=== PATIENT | male | born 1965 | race Caucasian/White ===

== ENCOUNTER 2019-05-02 14:44 | Outpatient (CLI) | payer BC, SELFPAY ==
--- NOTE | 2019-05-02 15:43 | ECG_ITS ---
Measurements Intervals [place] Rate: 75 P: 50 [place]: 152 QRS: 17 QRSD: 102 T: 45 QT: 349 QTc: 390 Interpretive Statements SINUS RHYTHM NORMAL ECG Electronically Signed On 05-02-2019 17:51:14 TOP STOP ATTACHER by Jerry Butterfield D.O.
[2019-05-02 15:48] LABS: Appearance Synovial Fluid Hazy (Clear); Color Synovial Fluid Red (Colorless); Source Synovial Fluid Synovial fluid
[2019-05-02 15:49] LABS: Lymphocytes Synovial Fluid 34 %; Monocytes Synovial Fluid 6 %; Neutrophils Synovial Fluid 60 % (0-25); Nucleated Cell Synovial Fluid 1332 /uL (0-200); RBC Synovial Fluid 6767 /uL (0-0)
[2019-05-02 15:52] LABS: Crystals Synovial Fluid None Seen (None Seen)
== END 2019-05-02 14:45 | disposition home or self-care (01) ==
LOC: ANHSURGERY 14:47
PROVIDERS: PCP Physician Assistant; Visit Provider Orthopaedic Surgery
DX: M00.9 Pyogenic arthritis, unspecified (principal); M17.12 Unilateral primary osteoarthritis, left knee; I10 Essential (primary) hypertension
CPT/HCPCS: 87070; 87075; 87205; 88108; 89051; 89060; 93005

== ENCOUNTER 2019-05-05 16:18 | Observation (INO) | payer BC, SELFPAY ==
[2019-05-02 15:42] VITALS: BP 160/97; PULSE 88; RESP 18; TEMP 37.2; O2SAT 100; BMI 36.6
--- NOTE | 2019-05-02 19:25 | HP_ITS ---
DATE OF SERVICE: 05/04/2019 ADMITTING DIGANOSIS: Infection, left knee. HISTORY OF PRESENT ILLNESS: The patient is a 53-year-old male patient of Dr. Pelayo, who presents today for arthroscopy with debridement of his left knee. His symptoms started. He had a cortisone injection on February 07, 2019. He started having increasing pain 10 days after the injection. 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 He was getting cortisone injections every 3 months to help control his symptoms. He was working on getting his weight down and that way he could proceed with total knee arthroplasty. 10 days after the injection on the , however, he started having increased pain in the knee. 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 His pain progressively got worse. Dr. Snider saw him on April 18, 2019. At that time, he felt he is ready to proceed with total knee. Concern was the amount of pain at that point he was having in his knee. He had an aspiration done of the knee and this was sent off for Gram stain as well as cell count and cultures. His initial white cell count was 1500 with 93% polys, 21 days and then there was no crystals noted. 21 days after the fluid was sent off for cultures, it grew scant growth of Staph aureus in broth only and this was reported to us. The patient did have a sedimentation rate and CRP done. His CRP was 1.2, which was slightly elevated as normal as less than 1. His sedimentation rate, however, was 83. He was reaspirated in the office as this may have thought this could have been a contaminant due to the scant growth with broth only at 21 days. He was reaspirated on 04/29. At that time, his white cell count was up to 16,000 with 95% neutrophils. This aspiration grew Staph aureus after 3 days. Because of this, Dr. Snider recommend that he have arthroscopic debridement done of the knee. The patient has a history of pulmonary embolus. He was seen in the office on 05/02. At that time, he had already taken his morning dose of Eliquis, which he does twice a day as he needs to be off this before proceeding surgery. At that point, he was advised to stop taking his Eliquis so we can proceed with surgery and presents today for that today. PAST MEDICAL HISTORY: Significant for pulmonary embolus in the past. He also has a history of ORIF of the left knee from previous lateral plateau fracture with 3 cannulated screws. Has a history of hypertension. CURRENT MEDICATIONS: 1. 20 mg daily. 2. Eliquis 5 mg twice a day. 3. Gabapentin 800 mg daily. 4. Lisinopril 20 mg daily. 5. Lorazepam 0.5 mg p.r.n. 6. Tramadol p.r.n. 7. Trazodone 50 mg daily. FAMILY HISTORY: Seen for cancer and hypertension. SOCIAL HISTORY: He is a nonsmoker. REVIEW OF SYSTEMS: Positive for the pulmonary embolus as noted above. Left knee, he has no redness or warmth about it. He has moderate effusion with a moderate valgus deformity. Full range of motion is from 20 to 60 degrees. There is no swelling in the left lower extremity. Does have a good dorsalis pedis pulse in his foot. Skin is all normal. He does have surgical incision distal and lateral. In the knee, there is also 3-inch laceration scar from a childhood laceration noted as well. He has moderate quadriceps atrophy of the left thigh. He does report some tingling in the bottom of his foot to medial half and lateral half that he has noticed within the last week. He has intact motor function, ankle dorsiflexion, eversion, inversion, toe extension, all 5/5. Hip range of motion causes no discomfort. X-rays demonstrate severe posttraumatic lateral compartment arthritis. Anatomic axis of 14.5 degrees. There are 3 screws traversing the tibial metaphysis insert
[2019-05-04] VITALS (10 sets, daily range): BP systolic 97–153; BP diastolic 48–79; PULSE 72–90; RESP 14–18; TEMP 36.2–36.8; O2SAT 94–99; BMI 36.6
[2019-05-04] MEDS: LACTATED RINGERS 1,000 ML 30 ML IV CONT (13:25)
--- NOTE | 2019-05-04 14:13 | P.PNAN_ITS ---
Anes - Initial Pre Proc Eval Procedure: Operation Date: 05/04/19 15:30 Proposed Procedures p Arthroscopic Debridement of Septic Arthritis Left Knee - Michael Snider MD Date/Time: 05/04/19 14:13 Surgeon: Michael Snider MD Pre Op Diagnosis: Septic arthritis left knee Patient Data Age: 53 Gender: M Height: 1.77 m Weight: 114.3 kg Last Vital Signs Temp 37.2 C 05/02/19 15:42 Pulse 88 05/02/19 15:42 Resp 18 05/02/19 15:42 BP 160/97 H 05/02/19 15:42 Pulse Ox 100 05/02/19 15:42 Allergies Allergy/AdvReac Type Severity Reaction Status Date / Time No Known Allergies Allergy Unverified 05/04/19 13:35 Home Medications Medication Instructions Recorded Confirmed Type apixaban [Eliquis] 5 mg PO BID 05/02/19 05/04/19 History duloxetine 60 mg PO DAILY 05/02/19 05/04/19 History gabapentin 800 mg PO BID 05/02/19 05/04/19 History lisinopril 20 mg PO DAILY 05/02/19 05/04/19 History lorazepam 0.5 mg PO BID 05/02/19 05/04/19 History [id number] 6.8 mg PO DAILY 05/02/19 05/04/19 History [Airborne (ascorbate sodium)] sulfamethoxazole-trimethoprim 1 tablet PO Q12H 05/02/19 05/04/19 History [Bactrim DS] tramadol 50 mg PO TID PRN 05/02/19 05/04/19 History trazodone 100 mg PO HS 05/02/19 05/04/19 History ECG: Date of Service: 05/02/19 Procedure(s): CA 12 lead EKG Accession Number(s): [id number] cc: ~ Measurements Intervals [place] Rate: 75 P: 50 [place]: 152 QRS: 17 QRSD: 102 T: 45 QT: 349 QTc: 390 Interpretive Statements SINUS RHYTHM NORMAL ECG Electronically Signed On 05-02-2019 17:51:14 COMPENSATOR WORKER by Jerry Butterfield D.O. Dictated By: Jerry Butterfield DO 05/02/19 1603 Patient hx anesthesia problems: none Family hx anesthesia problems: none REPLACED BY [facility] Past Medical History Medical History (Updated 05/04/19 @ 14:17 by Jack Macias MD) Anxiety Depression HTN (hypertension) Obesity SHANTAL (obstructive sleep apnea) USES CPAP Pulmonary embolism 2014 BILAT PE Anes - Eval Final PreProcedure Day of Procedure 05/04/19 14:13 Patient weight: obese Heart: regular rate and rhythm Lungs: clear to auscultation and normal air movement Airway: Mallampati scale class II Neurological: alert and oriented Last oral intake: >/= 8 hours ASA classification: III Emergent: no Anesthetic plan: proceed Anesthesia type and monitoring: general LMA Informed Consent: The patient's anesthetic plan and its attendant risks and benefits were discussed with the patient/family/POA. Questions were solicited and answers provided to the satisfaction of the patient/family/POA.
--- NOTE | 2019-05-04 16:17 | WPDHPUPDATE1 ---
History and Physical Update Update Date/Time: 05/04/19 16:17 History and Physical has been reviewed, including an updated exam of the patient. There are NO changes in the patient's condition. Risks, benefits, and alternatives have been discussed and questions answered. Patient agrees to proceed with procedure. Pt also growing P Acnes from cx drawn 04/29/19.. I have discussed plan with Dr Zamora. Start Vanco after new cultures andancef and plan PICC line in am.
[2019-05-04] MEDS: ceFAZolin 2 GM/D5W 50 ML 2 GM/50 ML BAG IVPB (16:47)
[2019-05-04 17:27] LABS: Appearance Synovial Fluid Hazy (Clear); Color Synovial Fluid Yellow (Colorless); Source Synovial Fluid Synovial fluid
[2019-05-04 17:28] LABS: Crystals Synovial Fluid None Seen (None Seen); Lymphocytes Synovial Fluid 4 %; Monocytes Synovial Fluid 11 %; Neutrophils Synovial Fluid 85 % (0-25); Nucleated Cell Synovial Fluid 1638 /uL (0-200); RBC Synovial Fluid 892 /uL (0-0)
--- NOTE | 2019-05-04 18:01 | PM.PROC ---
Procedure Note - Detailed Date of procedure: 05/04/19 Pre-op diagnosis: Septic arthritis left knee Post-op diagnosis: same Procedure performed: Arthroscopic debridement left knee debridement degenerative lateral meniscus tear placement of drain Description of procedure: Patient brought to the operating room and general anesthesia was administered. The left leg was prepped draped usual fashion with DuraPrep. We aspirated the knee and removed about 20 cc of hazy yellow fluid. it did not look purulent. Previous 2 aspirations had some sanguinous tint and this 1 did not. We sent the fluid for aerobic and anaerobic culture cell count with differential crystals and Gram stain. Standard arthroscopic portals placed. The medial compartment was inspected 1st. There was some very mild superficial fibrillation of the medial femoral condyle medial tibial plateau. There is no purulent material fibrinous cllots. One 3 L bag was flush 2 medial compartment medial gutter. ACL was absent. Lateral compartment showed [id number] eburnation of the posterior 3 4 Petter[place]ak lateral tibial plateau and weight-bearing portion of lateral femoral condyle. There was complex tearing of the posterior horn of the lateral meniscus was some flap formations and these were debrided with a 3.5 full-radius the 4.2 gator shaver. The anterior horn was severely macerated and this is also debrided. A little bit of bleeding was present from the anterior horn periphery and this was cauterized. There was some bland appearing degenerative synovium present which was debrided. In the patellofemoral joint there was hyperemic synovitis. There was mild softening of the surface of the patella and the trochlea articular cartilage. Lateral gutter had some white bland appearing degenerative synovium that was debrided. Suprapatellar pouch was thoroughly irrigated no loose bodies or debris noted. hyperemic synovitis noted. a total of 9 L of normal saline were flushed through the knee in this fashion with the motorized shaver back to main the course of the both compartments as well as the suprapatellar pouch the medial lateral gutters. The knee joint had no significant bleeding. The portals were closed 4 nylon sutures drain was placed in a superomedial portal 5 cc of 0.5% Marcaine were injected into the portal sites for postoperative analgesia. The was placed in knee immobilizer and transferred postop recovery good condition minimal complications. [facility] Surgeon: Michael Snider MD Getterer: I Estimated blood loss (mL): 10 Drains: Yes Pathology: none sent Complications: No immediate complications Condition: stable Disposition: PACU
--- NOTE | 2019-05-04 18:37 | SUR.PHASEI ---
4338 SBAR FAXED FLOOR NOTIFIED
[2019-05-04] MEDS: HYDROMORPHONE HCL 1 MG/ML INJ 0.25 MG IV PUSH ×2 (18:40→18:48)
--- NOTE | 2019-05-04 19:15 | ADMGEN ---
This patient, Patricio Del Rosario, was admitted to 3 [facility] Surg Room 310-01. Patient/family oriented to hospital policies and general routines including ID bracelet, bed and alarms, visiting hours, pain management, procedures, bathroom and other care routines, personal items, smoking policy, room service/diet, and visiting hours. Valuables list has been completed. Information on how to activate the Rapid Response Team has been discussed. Patient/Family are encouraged to report perceived risks to care and to ask questions if they do not understand what they are told or what they should do.
--- NOTE | 2019-05-04 19:34 | PC.NURSE ---
Returned from OR per BED DRESSING TO SURGICAL LEFT KNEE INTACT HEMOVAC COMPRESSED WITH BLOODY DRAINAGE NOTED TO RESERVOIR NO FAMILY AT BEDSIDE, MOVES TOES,SENSATION NORMAL MOVES TOES COLOR NORMAL AND WARM TO TOUCH. DENIES THE NEED FOR PAIN PT RETURNED FROM OR AT 1915.IMMOBILIZER ON SURGICAL LEG.[ ]
[2019-05-04] MEDS: TRAZODONE HCL 50 MG TABLET 100 MG PO (20:36)
[2019-05-04 21:05] LABS: Estimated CRCL calculation 88 ml/min; Estimated Glomerular Filt Rate > 60
[2019-05-05] VITALS (9 sets, daily range): BP systolic 108–142; BP diastolic 55–71; PULSE 71–82; RESP 16–20; TEMP 36.4–36.8; O2SAT 93–98
[2019-05-05] MEDS: ceFAZolin 2 GM/D5W 50 ML 2 GM/50 ML BAG IVPB ×3 (00:40→18:12)
[2019-05-05 06:16] LABS: Basophils Percent Auto 0.3 % (0.2-1.2); Eosinophils Absolute Auto 0.1 K/mm3 (0-0.3); Eosinophils Percent Auto 0.7 % (0-4.4); Hematocrit 36.7 % (42.0-52.0); Hemoglobin 12.5 g/dL (14.0-18.0); Immature Granulocyte Absolute 0.01 K/mm3 (0.00-0.031); Immature Granulocyte Percent A 0.1 % (0-0.5); Lymphocytes Absolute Auto 0.92 K/mm3 (0.9-3.2); Lymphocytes Percent Auto 13.7 % (18.3-44.2); Mean Corpuscular HGB Conc 34.1 g/dl (32-36); Mean Corpuscular Hemoglobin 29.9 pg (26-34); Mean Corpuscular Volume 87.8 fl (80-100); Mean Platelet Volume 9.7 fl (7.4-10.4); Monocytes Absolute Auto 0.5 K/mm3 (0.1-0.6); Monocytes Percent Auto 8.1 % (2.6-8.5); Neutrophils Absolute Auto 5.2 K/mm3 (1.3-6.7); Neutrophils Percent Auto 77.1 % (45.5-73.1); Platelet Count Result 306 k/mm3 (150-375); Red Blood Count 4.18 M/mm3 (4.6-6.20); Red Cell Distribution Width 12.7 % (11.5-14.5); White Blood Count 6.7 K/mm3 (4.5-10.0)
[2019-05-05 06:32] LABS: CRP 0.7 mg/dL (<1.0)
[2019-05-05 07:55] LABS: Erythrocyte Sedimentation Rate 48 mm/hr (0-20)
[2019-05-05 08:04] LABS: Rheumatoid Factor < 8.6 IU/ML (<12)
--- NOTE | 2019-05-05 08:05 | PM.PNORT ---
Progress Note: A&P Additional Plan POD 1 avss drain is out , wds-dry, NVI pain is controlled, will stop immobilizer now PT to see pt and ambulate, Dr Zamora to see pt today and recom. abx treatment. have ordered labs to look for lupus and rheum. type autoimmune disorders as well. once abx treatment is set will have SS set up home therpy, pt will need PICC line today, plan to send home today Subjective Subjective Date/Time Seen: 05/05/19 08:05 Objective Data Vital Signs Vital Signs: Vital Signs - 24 hr 05/04/19 17:40 05/04/19 18:00 05/04/19 18:15 Temperature 36.2 C L Pulse Rate 85 82 87 Respiratory Rate 16 16 16 Blood Pressure 97/48 L 132/76 134/76 Pulse Oximetry 95 99 98 05/04/19 18:30 05/04/19 18:44 05/04/19 19:15 Temperature 36.8 C Pulse Rate 83 78 75 Respiratory Rate 16 14 16 Blood Pressure 125/75 133/79 130/72 Pulse Oximetry 97 95 95 05/04/19 19:30 05/04/19 20:00 05/04/19 21:00 Temperature 36.8 C 36.8 C 36.7 C Pulse Rate 72 90 85 Respiratory Rate 18 18 16 Blood Pressure 135/72 153/73 H 141/66 H Pulse Oximetry 97 96 94 05/04/19 22:49 05/05/19 01:00 05/05/19 02:56 Temperature 36.7 C Pulse Rate 78 Respiratory Rate 20 Blood Pressure 142/71 H Pulse Oximetry 95 96 96 05/05/19 05:24 Temperature 36.4 C Pulse Rate 71 Respiratory Rate 18 Blood Pressure 108/55 L Pulse Oximetry 97 Intake/Output Intake/Output: Intake & Output 05/02/19 05/03/19 05/04/19 05/05/19 23:59 23:59 23:59 23:59 Intake Total 1650 1350 Output Total 1380 Balance 1650 -30 Meds/Results Medications: Active Medications Generic Name Dose Route Start Last Admin Trade Name Freq PRN Reason Stop Dose Admin Hydrocodone Bitart/Acetaminophen 1 tab 05/04/19 18:55 [place] 5-325 Mg PO Q3H PRN Pain Rated 4-6 Apixaban 2.5 mg 05/05/19 09:00 Eliquis PO 05/17/19 09:01 Q12HR [facility] Docusate Sodium 100 mg 05/05/19 09:00 Colace Capsule PO BID [facility] Duloxetine HCl 60 mg 05/05/19 09:00 Cymbalta PO DAILY [facility] Fentanyl Citrate 25 mcg 05/04/19 07:41 05/04/19 18:27 Sublimaze IV PUSH 25 mcg Q2M PRN Administration Pain Gabapentin 800 mg 05/05/19 09:00 Neurontin PO BID [facility] Hydromorphone HCl 0.25 mg 05/04/19 07:41 05/04/19 18:48 Dilaudid Inj IV PUSH 0.25 mg Q5M PRN Administration Pain Lactated Ringer's 1,000 mls @ 30 mls/hr 05/04/19 07:45 05/04/19 18:43 Lr - Lactated Ringers Iv IV CONT Infused .Q24H ASHLEE Infusion Lactated Ringer's 1,000 mls @ 30 mls/hr 05/04/19 07:45 05/04/19 23:05 Lr - Lactated Ringers Iv IV CONT Not Given .Q24H ASHLEE Cefazolin Sodium 2 gm in 50 mls @ 100 mls/hr 05/05/19 01:00 05/05/19 01:10 Ancef 2 Gm/D5w 50 Ml IVPB 05/05/19 17:29 Infused Q8H ASHLEE Infusion Vancomycin HCl 1,750 mg in 500 mls @ 250 mls/hr 05/05/19 05:00 05/05/19 06:42 Vancomycin 1,750 Mg/D5w 500 Ml IVPB Infused Q12H [facility] Infusion Lisinopril 20 mg 05/05/19 09:00 Prinivil PO DAILY [facility] Lorazepam 0.5 mg 05/05/19 09:00 Ativan Tab PO BID [facility] Magnesium Hydroxide 30 ml 05/04/19 18:55 Milk Of Magnesia PO BID PRN Constipation Ondansetron HCl 4 mg 05/04/19 07:41 Zofran Inj IV PUSH ONCE PRN Nausea Oxycodone HCl 5 mg 05/04/19 07:41 Roxicodone Ir Tablet PO ONCE PRN Pain Oxycodone/Acetaminophen 2 tablet 05/04/19 21:00 05/05/19 04:42 Percocet 5-325 Mg PO 2 tablet Q4HR ASHLEE Administration Trazodone HCl 100 mg 05/04/19 21:00 05/04/19 20:36 Desyrel PO 100 mg HS ASHLEE Administration Labs Labs: Laboratory Results - last 24 hr 05/04/19 05/04/19 05/04/19 16:32 16:32 20:43 WBC RBC Hgb Hct MCV MCH MCHC RDW Plt Count MPV Immature Gran % (Auto) Neut % (Auto) Lymph % (Auto) [place] % (Auto) Eos % (Auto) Baso % (Auto) Lymph # (Auto) [place] # (Auto) Eos # (Au
[2019-05-05] MEDS: LORAZEPAM 0.5 MG TABLET PO ×2 (09:58→16:33)
[2019-05-05] MEDS: DOCUSATE SODIUM 100 MG CAPSULE PO ×2 (09:58→18:14)
[2019-05-05] MEDS: lisinopriL 20 MG TABLET PO (09:59)
[2019-05-05] MEDS: DULOXETINE 60 MG CAPSULE.DR PO (09:59)
[2019-05-05] MEDS: GABAPENTIN 400 MG CAPSULE 800 MG PO ×2 (09:59→18:13)
[2019-05-05] MEDS: APIXABAN 2.5 MG TABLET PO ×2 (10:14→20:15)
--- NOTE | 2019-05-05 10:15 | WPDANESPN ---
Anes - Prog Note Post-Op Date/Time: 05/05/19 10:15 Vital Signs: Last Vital Signs Temp 97.6 F 05/05/19 05:24 Pulse 71 05/05/19 05:24 Resp 18 05/05/19 05:24 BP 108/55 L 05/05/19 05:24 Pulse Ox 95 05/05/19 09:41 I/O: Intake & Output 05/04/19 05/05/19 05/05/19 23:59 07:59 15:59 Intake Total 1650 1350 125 Output Total 1380 Balance 1650 -30 125 Laboratory Tests 05/05/19 05:46 05/04/19 20:43 05/04/19 05/04/19 05/04/19 16:32 16:32 20:43 WBC RBC Hgb Hct MCV MCH MCHC RDW Plt Count MPV Immature Gran % (Auto) Neut % (Auto) Lymph % (Auto) [place] % (Auto) Eos % (Auto) Baso % (Auto) Lymph # (Auto) [place] # (Auto) Eos # (Auto) Baso # (Auto) Abs Immat Gran (auto) Absolute Neuts (auto) Absolute Nucleated RBC Nucleated RBC % ESR Creatinine 1.10 Estim Creat Clear Calc 88 Estimated GFR > 60 C-Reactive Protein Synovial Source Synovial fluid Synovial Color Yellow Synovial Appearance Hazy A Synovial RBC 892 H Synovial Nuc Cells 1638 H Synovial Neutrophils 85 H Synovial Lymphocytes 4 Synovial Monocytes 11 Synovial Crystals None seen Rheumatoid Factor Anti-Cycl Citrul Peptide JAQUAN Screen 05/05/19 05/05/19 05/05/19 05:44 05:46 05:46 WBC RBC Hgb Hct MCV MCH MCHC RDW Plt Count MPV Immature Gran % (Auto) Neut % (Auto) Lymph % (Auto) [place] % (Auto) Eos % (Auto) Baso % (Auto) Lymph # (Auto) [place] # (Auto) Eos # (Auto) Baso # (Auto) Abs Immat Gran (auto) Absolute Neuts (auto) Absolute Nucleated RBC Nucleated RBC % ESR 48 H Creatinine Estim Creat Clear Calc Estimated GFR C-Reactive Protein 0.7 Synovial Source Synovial Color Synovial Appearance Synovial RBC Synovial Nuc Cells Synovial Neutrophils Synovial Lymphocytes Synovial Monocytes Synovial Crystals Rheumatoid Factor < 8.6 Anti-Cycl Citrul Peptide JAQUAN Screen 05/05/19 05/05/19 05:46 08:32 WBC 6.7 RBC 4.18 L Hgb 12.5 L Hct 36.7 L MCV 87.8 MCH 29.9 MCHC 34.1 RDW 12.7 Plt Count 306 MPV 9.7 Immature Gran % (Auto) 0.1 Neut % (Auto) 77.1 H Lymph % (Auto) 13.7 L [place] % (Auto) 8.1 Eos % (Auto) 0.7 Baso % (Auto) 0.3 Lymph # (Auto) 0.92 [place] # (Auto) 0.5 Eos # (Auto) 0.1 Baso # (Auto) 0.0 Abs Immat Gran (auto) 0.01 Absolute Neuts (auto) 5.2 Absolute Nucleated RBC 0.0 Nucleated RBC % 0.0 ESR Creatinine Estim Creat Clear Calc Estimated GFR C-Reactive Protein Synovial Source Synovial Color Synovial Appearance Synovial RBC Synovial Nuc Cells Synovial Neutrophils Synovial Lymphocytes Synovial Monocytes Synovial Crystals Rheumatoid Factor Anti-Cycl Citrul Peptide Pending JAQUAN Screen Pending Patient Feedback: Patient satisfied with anesthetic care.
--- NOTE | 2019-05-05 10:36 | PM.IMCN ---
Assessment and Plan Assessment and plan (1) Septic arthritis of knee, left: Qualifiers: Septic arthritis organism: due to unspecified organism Qualified Code(s): M00.9 - Pyogenic arthritis, unspecified Code(s): M00.9 - Pyogenic arthritis, unspecified Status: Acute Assessment and Plan: POD#1 s/p L knee washout/debridement by Dr Snider 05/04/19. He has consulted Dr. Zamora for further antibiotic recommendations but at the present time he is on vancomycin and cefazolin. Aspirate culture from 04/29 grew Proprionibacterium and Staph. New wound culture from OR yesterday is pending. Appreciate further input from Dr. Zamora. Edit: Dr Zamora's note reviewed. Noted his recommendation to continue IV Vanc. Left basilic PICC placed this afternoon. (2) HTN (hypertension): Qualifiers: Hypertension type: essential hypertension Qualified Code(s): I10 - Essential (primary) hypertension Code(s): I10 - Essential (primary) hypertension Status: Acute Assessment and Plan: Blood pressures reviewed. Continue home lisinopril. Monitor blood pressure and adjust treatment if needed. (3) SHANTAL (obstructive sleep apnea): Code(s): G47.33 - Obstructive sleep apnea (adult) (pediatric) Status: Acute Assessment and Plan: His his CPAP from home. (4) Pulmonary embolism: Qualifiers: Pulmonary embolism type: multiple subsegmental (without acute cor pulmonale) Qualified Code(s): I26.94 - Multiple subsegmental pulmonary emboli without acute cor pulmonale Code(s): I26.99 - Other pulmonary embolism without acute cor pulmonale Status: Acute Assessment and Plan: History of bilateral pulmonary emboli in 2014 for which he is chronically anticoagulated on Eliquis. His Eliquis has been resumed by the primary service. (5) Depression: Qualifiers: Depression Type: unspecified Qualified Code(s): F32.9 - Major depressive disorder, single episode, unspecified Code(s): F32.9 - Major depressive disorder, single episode, unspecified Status: Acute Assessment and Plan: Stable on home medications. (6) DVT prophylaxis: Code(s): Z29.9 - Encounter for prophylactic measures, unspecified Status: Acute Assessment and Plan: Eliquis Additional Plan Thank you for allowing me to participate this pleasant gentleman's care. Will continue to follow with you while he is here. Recommend continuing his home medications at the current dosages. HPI Data of Consult Consult date: 05/05/19 Requesting Physician: Mihcael Snider MD Primary Care Provider: Kaylie Lofton, PA Consult Narrative Narrative: Date of Service 05/05/19. Hospitalist service is asked to see this patient in consultation for postoperative medical management by Dr. Snider. The supervising physician for this medical consultation is Dr. Zimmer. Mr. Del Rosario is a 53-year-old male with history of hypertension, obstructive sleep apnea compliant with CPAP, depression with anxiety, history of pulmonary embolism in 2014 on chronic anticoagulation with Eliquis who is seen this morning POD#1 s/p arthroscopic debridement of left knee by Dr. Snider. He is known have severe arthritis to the left knee and it is noted that he had been receiving cortisone injections by Dr. Snider's office about every 3 months, last being 02/07/19. It is noted that he began to have increasing pain about 10 days after that last injection and patient had been working on weight loss to consider total knee arthroplasty. His left knee was aspirated in Dr Snider's office 03/25/19 and again 04/29/19. Aspirate culture from 04/29 aspiration grew Proprionibacterium acnes and Staphylococcus. He then underwent arthroscopic debridement the left knee yesterday
--- NOTE | 2019-05-05 12:01 | WPDINFPN2 ---
Progress Note: A&P Assessment and Plan (1) Septic arthritis of knee, left: Qualifiers: Septic arthritis organism: due to unspecified organism Qualified Code(s): M00.9 - Pyogenic arthritis, unspecified Code(s): M00.9 - Pyogenic arthritis, unspecified Status: Acute Assessment and Plan: Septic arthritis L knee, skin michael REC Vanc # 2 / 14-28 days. Ok PICC or alternative as recommended by [facility]. Knee replacement unfortunately will have to be deferred 6-12 months Subjective Date/time seen: 05/05/19 12:01 Objective Data Vital Signs Vital Signs: Vital Signs - 24 hr 05/04/19 17:40 05/04/19 18:00 05/04/19 18:15 Temperature 36.2 C L Pulse Rate 85 82 87 Respiratory Rate 16 16 16 Blood Pressure 97/48 L 132/76 134/76 Pulse Oximetry 95 99 98 05/04/19 18:30 05/04/19 18:44 05/04/19 19:15 Temperature 36.8 C Pulse Rate 83 78 75 Respiratory Rate 16 14 16 Blood Pressure 125/75 133/79 130/72 Pulse Oximetry 97 95 95 05/04/19 19:30 05/04/19 20:00 05/04/19 21:00 Temperature 36.8 C 36.8 C 36.7 C Pulse Rate 72 90 85 Respiratory Rate 18 18 16 Blood Pressure 135/72 153/73 H 141/66 H Pulse Oximetry 97 96 94 05/04/19 22:49 05/05/19 01:00 05/05/19 02:56 Temperature 36.7 C Pulse Rate 78 Respiratory Rate 20 Blood Pressure 142/71 H Pulse Oximetry 95 96 96 05/05/19 05:24 05/05/19 09:41 Temperature 36.4 C Pulse Rate 71 Respiratory Rate 18 Blood Pressure 108/55 L Pulse Oximetry 97 95 Intake/Output Intake/Output: Intake & Output 05/02/19 05/03/19 05/04/19 05/05/19 23:59 23:59 23:59 23:59 Intake Total 1650 1475 Output Total 1380 Balance 1650 95 Meds/Results Medications: Active Medications Generic Name Dose Route Start Last Admin Trade Name Freq PRN Reason Stop Dose Admin Hydrocodone Bitart/Acetaminophen 1 tab 05/04/19 18:55 [place] 5-325 Mg PO Q3H PRN Pain Rated 4-6 Apixaban 2.5 mg 05/05/19 09:00 05/05/19 10:14 Eliquis PO 05/17/19 09:01 2.5 mg Q12HR ASHLEE Administration Docusate Sodium 100 mg 05/05/19 09:00 05/05/19 09:58 Colace Capsule PO 100 mg BID ASHLEE Administration Duloxetine HCl 60 mg 05/05/19 09:00 05/05/19 09:59 Cymbalta PO 60 mg DAILY ASHLEE Administration Fentanyl Citrate 25 mcg 05/04/19 07:41 05/04/19 18:27 Sublimaze IV PUSH 25 mcg Q2M PRN Administration Pain Gabapentin 800 mg 05/05/19 09:00 05/05/19 09:59 Neurontin PO 800 mg BID ASHLEE Administration Hydromorphone HCl 0.25 mg 05/04/19 07:41 05/04/19 18:48 Dilaudid Inj IV PUSH 0.25 mg Q5M PRN Administration Pain Lactated Ringer's 1,000 mls @ 30 mls/hr 05/04/19 07:45 05/04/19 18:43 Lr - Lactated Ringers Iv IV CONT Infused .Q24H ASHLEE Infusion Lactated Ringer's 1,000 mls @ 30 mls/hr 05/04/19 07:45 05/04/19 23:05 Lr - Lactated Ringers Iv IV CONT Not Given .Q24H ASHLEE Cefazolin Sodium 2 gm in 50 mls @ 100 mls/hr 05/05/19 01:00 05/05/19 10:05 Ancef 2 Gm/D5w 50 Ml IVPB 05/05/19 17:29 100 mls/hr Q8H ASHLEE Administration Vancomycin HCl 1,750 mg in 500 mls @ 250 mls/hr 05/05/19 05:00 05/05/19 06:42 Vancomycin 1,750 Mg/D5w 500 Ml IVPB Infused Q12H ASHLEE Infusion Lisinopril 20 mg 05/05/19 09:00 05/05/19 09:59 Prinivil PO 20 mg DAILY ASHLEE Administration Lorazepam 0.5 mg 05/05/19 09:00 05/05/19 09:58 Ativan Tab PO 0.5 mg BID ASHLEE Administration Magnesium Hydroxide 30 ml 05/04/19 18:55 Milk Of Magnesia PO BID PRN Constipation Ondansetron HCl 4 mg 05/04/19 07:41 Zofran Inj IV PUSH ONCE PRN Nausea Oxycodone HCl 5 mg 05/04/19 07:41 Roxicodone Ir Tablet PO ONCE PRN Pain Oxycodone/Acetaminophen 2 tablet 05/04/19 21:00 05/05/19 09:58 Percocet 5-325 Mg PO 2 tablet Q4HR ASHLEE Administration Trazodone HCl 100 mg 05/04/19 21:00 05/04/19 20:36 Desyrel PO 100 mg HS ASHLEE Administration
[2019-05-05] MEDS: LIDOCAINE HCL 1% PF INJ 5 ML VIAL INFILTRATE (14:00)
--- NOTE | 2019-05-05 17:48 | CONS_ITS ---
DATE OF CONSULTATION: 05/05/2019 REASON FOR CONSULTATION: Infectious arthritis, left knee. HISTORY OF PRESENT ILLNESS: The patient is a 53-year-old male with degenerative arthritis. He has had some 6 to 8 corticosteroid injections over the past 2 years in the office. He knows of no past infections as a result or previously. He had previously suffered a fracture of the left tibia area and screws remain in place. He had an injection into the left knee in mid February and about a week later developed pain in the medial and anterior aspect of the inferior knee. Pain was worse with weightbearing or with movement. He was seen in the office on April 02 approximately where aspiration revealed 1507 white cells, 93% PMNs. Culture revealed a single colony of coagulase-negative Staph with no organism seen on Gram stain. Pain persisted and he had repeat aspiration done 5 days before admission. Propionate bacterium and coagulase-negative Staph were isolated, Gram stain again no organisms, but this time many white blood cells. Concurrent cell count was 16,877 white cells, 95% PMNs. Aspiration was also performed 2 days before admission on the , which is red, hazy, 6767 red cells, 1332 white cells, now 60% PMNs. Culture at this time after 3 days is no growth so far. His pain then was persistent. He was admitted yesterday, taken to the operating room yesterday where he underwent arthroscopic debridement of the left knee with lateral meniscus tear debridement and placement of a drain. Hyperemic synovitis was seen. No purulent material. The patient denies any fever, chills, sweats, other prior operations. He does have pain in the opposite knee as well over senior living. ALLERGIES: NONE KNOWN. HABITS: No tobacco. Social drinker. PRESENT MEDICATIONS: Vancomycin day #2. No immunosuppressants. PAST MEDICAL HISTORY: Pulmonary embolism apparently without a known source on chronic anticoagulation, also hypertension in the past, SHANTAL, prior depression. FAMILY HISTORY: Not pertinent to his present illness. 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 He is . is at the bedside, lives locally. REVIEW OF SYSTEMS: Intentional weight loss, some 40 pounds, 14-point review otherwise negative. PHYSICAL EXAMINATION: GENERAL: This is a middle-aged male, who appears actual age. No acute distress. VITAL SIGNS: Afebrile, 108/55, 71, 18, 97% room air. SKIN: Warm and dry. No ulcers. No rashes. NODES: No cervical adenopathy. EENT: The pupils equal, round. Conjunctivae are normal. Oral mucosa is also normal. Teeth in excellent repair. NECK: No meningismus, thyromegaly, abnormal contour. LUNGS: Clear to auscultation and percussion. CARDIAC: Regular rate and rhythm. Normal S1, S2. No murmurs or gallops. Dorsalis pedis, radial pulses all 2+ and equal. ABDOMEN: Nontender, soft. No organomegaly. No masses. EXTREMITIES: No clubbing, cyanosis, or edema. He has minimal venous stasis skin changes. MUSCULOSKELETAL: No drains in place. He has an anterior knee incision. He has no sinus tracts. No erythema over the proximal tibia area where his ORIF hardware sits. LABORATORY DATA: Preadmission labs as above. Currently, his fluid from the , no organisms seen, and rare white cells as opposed to previous results. The fluid was now 1638 white cells, 892 red cells, 85% PMNs, no crystals, nor crystals have been observed previously. His white blood cell count today 6.7, hemoglobin 12.5, platelets are 306, creatinine 1.1, hemoglobin A1c 5.8%. His CRP 6 days ago was 1.2, today 0.7. Radiology not done. ASSESSMENT: 1. Arthritis with effusion, left knee of approximately 2 months duration, suspected a true infection. The coagulase-negative Staph in the
[2019-05-05] MEDS: TRAZODONE HCL 50 MG TABLET 100 MG PO (20:15)
[2019-05-06 01:23] VITALS: O2SAT 96
[2019-05-06 05:19] LABS: Basophils Absolute Auto 0.1 K/mm3 (0.0-0.1); Basophils Percent Auto 0.9 % (0.2-1.2); Eosinophils Absolute Auto 0.2 K/mm3 (0-0.3); Eosinophils Percent Auto 3.4 % (0-4.4); Hematocrit 37.7 % (42.0-52.0); Hemoglobin 12.5 g/dL (14.0-18.0); Immature Granulocyte Absolute 0.01 K/mm3 (0.00-0.031); Immature Granulocyte Percent A 0.2 % (0-0.5); Lymphocytes Absolute Auto 1.68 K/mm3 (0.9-3.2); Lymphocytes Percent Auto 28.6 % (18.3-44.2); Mean Corpuscular HGB Conc 33.2 g/dl (32-36); Mean Corpuscular Hemoglobin 29.6 pg (26-34); Mean Corpuscular Volume 89.3 fl (80-100); Mean Platelet Volume 9.6 fl (7.4-10.4); Monocytes Absolute Auto 0.7 K/mm3 (0.1-0.6); Monocytes Percent Auto 11.2 % (2.6-8.5); Neutrophils Absolute Auto 3.3 K/mm3 (1.3-6.7); Neutrophils Percent Auto 55.7 % (45.5-73.1); Platelet Count Result 273 k/mm3 (150-375); Red Blood Count 4.22 M/mm3 (4.6-6.20); Red Cell Distribution Width 13.1 % (11.5-14.5); White Blood Count 5.9 K/mm3 (4.5-10.0)
[2019-05-06 05:34] LABS: Blood Urea Nitrogen 26 mg/dL (9-20); Calcium 9.3 mg/dL (8.4-10.2); Carbon Dioxide 27 mmol/L (22-30); Chloride 102 mmol/L (98-107); Estimated CRCL calculation 96 ml/min; Estimated Glomerular Filt Rate > 60; Glucose 98 mg/dL (75-110); Magnesium 1.7 mg/dL (1.6-2.3); Potassium 4.3 mmol/L (3.4-5.0); Sodium 137 mmol/L (137-145)
[2019-05-06 06:00] VITALS: BP 122/66; PULSE 66; RESP 16; TEMP 36.4; O2SAT 96
--- NOTE | 2019-05-06 06:19 | DS_ITS ---
DATE OF DISCHARGE: 05/05/2019 DISCHARGE DIAGNOSIS: Left knee infection HOSPITAL COURSE: The patient is a 53-year-old male, who underwent irrigation, debridement arthroscopically of his left knee by Dr. Snider on 05/04, for infection in the knee, underwent procedure without any complications. Postoperatively, he has been afebrile. Vital signs been stable. Neurovascularly intact. His drain has been removed. His 3 portal incisions are clean and dry without any drainage. The patient is going to be evaluated by Dr. Zamora today to establish IV therapy treatments and they will set this up for this to be done at home. We will get this all setup on 05/05, so that he can be discharged on 05/05. He had new labs that were drawn on 05/05, his white count was 6.7. His sedimentation rate was 48, which is down from 83. C-reactive protein was normal at 0.7. Fluid was sent off prior to surgery last night with showing only 1600 white cells. Previous aspiration done in the office showed 16,000 and the one prior to that only showed 1500 is a very odd scenario. There has been no crystals seen in the synovial fluid. The patient has been restarted on low-dose Eliquis 2.5 mg, he will do this the night of 05/05 and then during the day on 05/06, then resume his full dose on May 1, 5 mg twice a day. Again, once Dr. Zamora has made recommendations, we will proceed to hopefully get the patient discharged later today. The aspirations did grow coag-negative staph. Propionibacterium acnes was grown from that. The patient will follow up with Dr. Snider as scheduled to go home on [place] 5 for pain. He is weightbearing as tolerated on regular diet. He was advised if any questions or concerns. Call the office otherwise or see him at this point. Josh I MT: Jose
--- NOTE | 2019-05-06 06:51 | PM.PNORT ---
Progress Note: A&P Additional Plan Patient is now approximately the 36 hr after arthroscopic lavage debridement of degenerative meniscus tear left knee. Dr. Zamora's note was reviewed. I agree with his assessment and recommendations. I am going to ask the patient to see Dr. Zamora in 2 weeks to obtain his opinion on vancomycin treatment duration. His portal sites look fine his not have significant swelling in the knee there is minimal tenderness. No signs of hemarthrosis. We have him on Eliquis 2.5 mg twice daily as a prophylactic dose. He had to stay overnight as we are waiting for insurance authorization for home IV therapy and hopefully that will be accomplished today. The PICC line was put in yesterday afternoon. Is functioning. His BMP looks fine today. he is moving the knee comfortably and up and about in the room. he has the foot pumps in place. We will plan to have him resume his 5 mg Eliquis twice daily discharge and he will take that tonight which was discussed. I did order JAQUAN and rheumatoid factor and anti CCP and will add lupus anticoagulant today. With his very high sedimentation rate of 85 recently and is history of spontaneous severe pulmonary emboli, this raises the question of possible systemic inflammatory condition predisposing him to inflammatory arthritis an thromboembolic disease. I will see him in the office in 7 days to remove the stitches. Subjective Subjective Date/Time Seen: 05/06/19 06:51 Objective Data Vital Signs Vital Signs: Vital Signs - 24 hr 05/05/19 09:41 05/05/19 13:23 05/05/19 14:00 Temperature 36.4 C L 36.6 C Pulse Rate 73 82 Respiratory Rate 19 18 Blood Pressure 116/58 L 130/60 Pulse Oximetry 95 98 95 05/05/19 21:27 05/05/19 21:28 05/05/19 22:00 Temperature 36.8 C Pulse Rate 82 Respiratory Rate 16 Blood Pressure 111/60 Pulse Oximetry 95 95 93 05/06/19 01:23 05/06/19 06:00 Temperature 36.4 C Pulse Rate 66 Respiratory Rate 16 Blood Pressure 122/66 Pulse Oximetry 96 96 Intake/Output Intake/Output: Intake & Output 05/03/19 05/04/19 05/05/19 05/06/19 23:59 23:59 23:59 23:59 Intake Total 1650 3065 200 Output Total 2305 1000 Balance 1650 760 -800 Meds/Results Medications: Active Medications Generic Name Dose Route Start Last Admin Trade Name Freq PRN Reason Stop Dose Admin Hydrocodone Bitart/Acetaminophen 1 tab 05/04/19 18:55 [place] 5-325 Mg PO Q3H PRN Pain Rated 4-6 Apixaban 2.5 mg 05/05/19 09:00 05/05/19 20:15 Eliquis PO 05/17/19 09:01 2.5 mg Q12HR ASHLEE Administration Docusate Sodium 100 mg 05/05/19 09:00 05/05/19 18:14 Colace Capsule PO 100 mg BID ASHLEE Administration Duloxetine HCl 60 mg 05/05/19 09:00 05/05/19 09:59 Cymbalta PO 60 mg DAILY ASHLEE Administration Fentanyl Citrate 25 mcg 05/04/19 07:41 05/04/19 18:27 Sublimaze IV PUSH 25 mcg Q2M PRN Administration Pain Gabapentin 800 mg 05/05/19 09:00 05/05/19 18:13 Neurontin PO 800 mg BID ASHLEE Administration Hydromorphone HCl 0.25 mg 05/04/19 07:41 05/04/19 18:48 Dilaudid Inj IV PUSH 0.25 mg Q5M PRN Administration Pain Lactated Ringer's 1,000 mls @ 30 mls/hr 05/04/19 07:45 05/04/19 18:43 Lr - Lactated Ringers Iv IV CONT Infused .Q24H ASHLEE Infusion Lactated Ringer's 1,000 mls @ 30 mls/hr 05/04/19 07:45 05/04/19 23:05 Lr - Lactated Ringers Iv IV CONT Not Given .Q24H ASHLEE Vancomycin HCl 1,750 mg in 500 mls @ 250 mls/hr 05/05/19 05:00 05/06/19 05:04 Vancomycin 1,750 Mg/D5w 500 Ml IVPB 250 mls/hr Q12H ASHLEE Administration Lisinopril 20 mg 05/05/19 09:00 05/05/19 09:59 Prinivil PO 20 mg DAILY ASHLEE Administration Lorazepam 0.5 mg 05/05/19 09:00 05/05/19 16:33 Ativan Tab PO 0.5 mg BID ASHLEE Administration Magnesium Hydroxide 30 ml 05/04/19 18:55 Milk Of Magnesia PO BID PRN Constipation Ondansetron HCl 4 mg 05/04/19 07:41 Zo
[2019-05-06] MEDS: LORAZEPAM 0.5 MG TABLET PO (08:21)
[2019-05-06] MEDS: lisinopriL 20 MG TABLET PO (08:21)
[2019-05-06] MEDS: GABAPENTIN 400 MG CAPSULE 800 MG PO (08:21)
[2019-05-06] MEDS: APIXABAN 2.5 MG TABLET PO (08:21)
[2019-05-06] MEDS: DULOXETINE 60 MG CAPSULE.DR PO (08:21)
[2019-05-06] MEDS: DOCUSATE SODIUM 100 MG CAPSULE PO (08:21)
--- NOTE | 2019-05-06 10:50 | DS_ITS ---
DATE OF DISCHARGE: ADDENDUM: Original date of discharge is 05/05. His planned discharge to be 05/06. The patient was needed to stay an additional night. IV antibiotics were being set up through home health therapy and the PICC line was placed. However, they did not have personnel to go to his house to set up IV antibiotics last night and was therefore needed to stay 1 additional evening to allow all the antibiotics to be set up. The patient has been seen by Dr. Zamora, who has recommended 2 to 4 weeks of IV antibiotics. Postop day #2, the patient has been alert, pleasant. He has been afebrile. Vital signs have been stable. His wounds are dry. Pain is well controlled. He will be discharged home on 05/06. Again, he is weightbearing as tolerated with a normal diet. He will resume his normal dosing of Eliquis this evening. He will follow up with Dr. Snider and Dr. Zamora as scheduled. If he has any questions or concerns when he goes home, will call the office, otherwise we will see him then. Josh I MT: Jose
--- NOTE | 2019-05-06 11:01 | PM.IMPN ---
Progress Note: A&P Assessment and Plan (1) Septic arthritis of knee, left: Qualifiers: Septic arthritis organism: due to unspecified organism Qualified Code(s): M00.9 - Pyogenic arthritis, unspecified Code(s): M00.9 - Pyogenic arthritis, unspecified Status: Acute Assessment and Plan: POD#2 s/p L knee washout/debridement by Dr Snider 05/04/19. He has consulted Dr. Zamora for further antibiotic recommendations. Left basilic PICC placed yesterday. Discharged home with home health for IV vancomycin. Serial labs to be drawn by home health RN. Patient is medically stable for discharge from hospitalist standpoint. (2) HTN (hypertension): Qualifiers: Hypertension type: essential hypertension Qualified Code(s): I10 - Essential (primary) hypertension Code(s): I10 - Essential (primary) hypertension Status: Acute Assessment and Plan: Blood pressures reviewed. Continue home lisinopril. (3) SHANTAL (obstructive sleep apnea): Code(s): G47.33 - Obstructive sleep apnea (adult) (pediatric) Status: Acute Assessment and Plan: CPAP (4) Pulmonary embolism: Qualifiers: Pulmonary embolism type: multiple subsegmental (without acute cor pulmonale) Qualified Code(s): I26.94 - Multiple subsegmental pulmonary emboli without acute cor pulmonale Code(s): I26.99 - Other pulmonary embolism without acute cor pulmonale Status: Acute Assessment and Plan: History of bilateral pulmonary emboli in 2015 for which he is chronically anticoagulated on Eliquis. His Eliquis has been resumed by the primary service. (5) Depression: Qualifiers: Depression Type: unspecified Qualified Code(s): F32.9 - Major depressive disorder, single episode, unspecified Code(s): F32.9 - Major depressive disorder, single episode, unspecified Status: Acute Assessment and Plan: Stable on home medications. (6) DVT prophylaxis: Code(s): Z29.9 - Encounter for prophylactic measures, unspecified Status: Acute Assessment and Plan: Shira Additional Plan Thank you for allowing me to participate this pleasant gentleman's care. Stable for discharge from hospitalist standpoint. Recommend continuing his home medications at the current dosages. Subjective Date/time seen: 05/06/19 1030 Interval history: Mr. Del Rosario is a 53yo M seen in follow up this morning POD #2 s/p left knee arthroscopic washout and debridement by Dr. Snider 05/04/19. He reports feeling well today. Has some left knee discomfort that is tolerable at time of my exam, otherwise no complaints. No chest pain, shortness of breath, or calf tenderness. He is tolerating PO intake without nausea or vomiting. Exam Narrative: Exam Narrative: General: Well-developed, well-nourished male resting in bed in no acute distress. HEENT: Normocephalic, atraumatic, EOMI, oral mucosa moist. Neck: Supple. Chest: Lungs clear to auscultation all griff[place]. Respirations are even and nonlabored. Tolerating room air. Heart: Heart rate and rhythm regular. Abdomen: Soft, nontender, nondistended, bowel sounds present. Extremities: Left knee dressing has been removed and now minor incisions are covered with Band-Aids. Swelling noted to left knee, not particularly hot to touch or painful to palpation. Left lower extremity neurovascularly intact. Neurologic: No focal neurological deficits noted. Speech is clear. Objective Data Vital Signs Vital Signs: Last Vital Signs Temp 97.6 F 05/06/19 06:00 Pulse 66 05/06/19 06:00 Resp 16 05/06/19 06:00 BP 122/66 05/06/19 06:00 Pulse Ox 96 05/06/19 06:00 Intake/Output Intake/Output: Intake & Output 05/03/19 05/04/19 05/05/19 05/06/19 23:59 23:59 23:59 23:59 Intake
--- NOTE | 2019-05-06 13:30 | WPDPN ---
Progress Note: A&P Assessment and Plan (1) Septic arthritis of knee, left: Qualifiers: Septic arthritis organism: due to unspecified organism Qualified Code(s): M00.9 - Pyogenic arthritis, unspecified Code(s): M00.9 - Pyogenic arthritis, unspecified Status: Acute Assessment and Plan: Septic arthritis L knee, skin michael REC Vanc # 2 / 14-28 days. Ok PICC or alternative as recommended by [facility]. Knee replacement unfortunately will have to be deferred 6-12 months Patient not seen today. Orders provided for Vanc as above, ok discharge Objective Data Vital Signs Vital Signs: Vital Signs - 24 hr 05/05/19 14:00 05/05/19 21:27 05/05/19 21:28 Temperature 36.6 C Pulse Rate 82 Respiratory Rate 18 Blood Pressure 130/60 Pulse Oximetry 95 95 95 05/05/19 22:00 05/06/19 01:23 05/06/19 06:00 Temperature 36.8 C 36.4 C Pulse Rate 82 66 Respiratory Rate 16 16 Blood Pressure 111/60 122/66 Pulse Oximetry 93 96 96 Intake/Output Intake/Output: Intake & Output 05/03/19 05/04/19 05/05/19 05/06/19 23:59 23:59 23:59 23:59 Intake Total 1650 3065 1180 Output Total 2305 1000 Balance 1650 760 180 Meds/Results Medications: Active Medications Generic Name Dose Route Start Last Admin Trade Name Freq PRN Reason Stop Dose Admin Hydrocodone Bitart/Acetaminophen 1 tab 05/04/19 18:55 [place] 5-325 Mg PO Q3H PRN Pain Rated 4-6 Apixaban 2.5 mg 05/05/19 09:00 05/06/19 08:21 Eliquis PO 05/17/19 09:01 2.5 mg Q12HR ASHLEE Administration Docusate Sodium 100 mg 05/05/19 09:00 05/06/19 08:21 Colace Capsule PO 100 mg BID ASHLEE Administration Duloxetine HCl 60 mg 05/05/19 09:00 05/06/19 08:21 Cymbalta PO 60 mg DAILY ASHLEE Administration Fentanyl Citrate 25 mcg 05/04/19 07:41 05/04/19 18:27 Sublimaze IV PUSH 25 mcg Q2M PRN Administration Pain Gabapentin 800 mg 05/05/19 09:00 05/06/19 08:21 Neurontin PO 800 mg BID ASHLEE Administration Hydromorphone HCl 0.25 mg 05/04/19 07:41 05/04/19 18:48 Dilaudid Inj IV PUSH 0.25 mg Q5M PRN Administration Pain Lactated Ringer's 1,000 mls @ 30 mls/hr 05/04/19 07:45 05/04/19 18:43 Lr - Lactated Ringers Iv IV CONT Infused .Q24H ASHLEE Infusion Lactated Ringer's 1,000 mls @ 30 mls/hr 05/04/19 07:45 05/04/19 23:05 Lr - Lactated Ringers Iv IV CONT Not Given .Q24H ASHLEE Vancomycin HCl 1,750 mg in 500 mls @ 250 mls/hr 05/05/19 05:00 05/06/19 07:46 Vancomycin 1,750 Mg/D5w 500 Ml IVPB Infused Q12H ASHLEE Infusion Lisinopril 20 mg 05/05/19 09:00 05/06/19 08:21 Prinivil PO 20 mg DAILY ASHLEE Administration Lorazepam 0.5 mg 05/05/19 09:00 05/06/19 08:21 Ativan Tab PO 0.5 mg BID ASHLEE Administration Magnesium Hydroxide 30 ml 05/04/19 18:55 Milk Of Magnesia PO BID PRN Constipation Ondansetron HCl 4 mg 05/04/19 07:41 Zofran Inj IV PUSH ONCE PRN Nausea Oxycodone HCl 5 mg 05/04/19 07:41 Roxicodone Ir Tablet PO ONCE PRN Pain Oxycodone/Acetaminophen 2 tablet 05/04/19 21:00 05/06/19 12:13 Percocet 5-325 Mg PO 2 tablet Q4HR ASHLEE Administration Trazodone HCl 100 mg 05/04/19 21:00 05/05/19 20:15 Desyrel PO 100 mg HS ASHLEE Administration Labs Labs: Laboratory Results - last 24 hr 05/06/19 05/06/19 05:00 05:00 WBC 5.9 RBC 4.22 L Hgb 12.5 L Hct 37.7 L MCV 89.3 MCH 29.6 MCHC 33.2 RDW 13.1 Plt Count 273 MPV 9.6 Immature Gran % (Auto) 0.2 Neut % (Auto) 55.7 Lymph % (Auto) 28.6 Yell % (Auto) 11.2 H Eos % (Auto) 3.4 Baso % (Auto) 0.9 Lymph # (Auto) 1.68 Yell # (Auto) 0.7 H Eos # (Auto) 0.2 Baso # (Auto) 0.1 Abs Immat Gran (auto) 0.01 Absolute Neuts (auto) 3.3 Absolute Nucleated RBC 0.0 Nucleated RBC % 0.0 Sodium 137 Potassium 4.3 Chloride 102 Carbon Dioxide 27 BUN 26 H Creatinine 1.00 Estim Creat C
[2019-05-08 11:13] LABS: Anti Cyclic Citrullinated Pept <16 Units (<20)
[2019-05-10 19:42] LABS: Hex Phase Conf Chg Test Yes; Lupus dRVVT 1:1 Mix Interpreta Not Indicated; Lupus dRVVT Screen 37 sec (<=45); LupusdRVVT 1:1Mix Int Chg Test Yes; PTT-LA Screen 34 sec (<=40)
== END 2019-05-06 15:08 | disposition home health service (06) ==
LOC: ANHSURGERY 18:33 → ANH3MEDSUR 18:33
PROVIDERS: Physician Assistant; Physician Assistant Surgical; Admitting Provider Orthopaedic Surgery; PCP Physician Assistant; Visit Provider Orthopaedic Surgery
PROC: (CPT 29870; principal; 2019-05-04 15:30)
DX: M00.862 Arthritis due to other bacteria, left knee (principal); M65.862 Other synovitis and tenosynovitis, left lower leg; M23.352 Other meniscus derangements, posterior horn of lateral meniscus, left knee; I26.94 Multiple subsegmental thrombotic pulmonary emboli without acute cor pulmonale; I10 Essential (primary) hypertension; F32.9 Major depressive disorder, single episode, unspecified; G47.33 Obstructive sleep apnea (adult) (pediatric); E66.9 Obesity, unspecified; Z68.36 Body mass index [BMI] 36.0-36.9, adult; Z79.01 Long term (current) use of anticoagulants; Z79.899 Other long term (current) drug therapy; Z86.711 Personal history of pulmonary embolism; Z99.89 Dependence on other enabling machines and devices
CPT/HCPCS: 29881; 20610; 36415; 36569; 80048; 82565; 83735; 85025; 85598; 85613; 85652; 85730; 86038; 86140; 86200; 86430; 87070; 87075; 87205; 88108; 89051; 89060; 97110; 97116; 97161; A9270; C1751; G0378; J0131; J0690; J1100; J1170; J1885; J2250; J2405; J2704; J3010; J3370; J7120; L1830

== ENCOUNTER → 2019-10-19 10:07 | Outpatient (CLI) | payer BC, SELFPAY ==
--- NOTE | ~2019-10-19 | MR_ITS ---
EXAMINATION: MR foot RT wo con DATE: 10/19/2019 10:54 INDICATION: Plantar fascial fibromatosis TECHNIQUE: Magnetic resonance imaging (MRI) of the right ankle, mid and hindfoot was performed withou t intravenous contrast. Sequences included sagittal, coronal, and axial proton-density weighted fast spin echo without and with fat saturation. COMPARISON: 01/13/2017 FINDINGS: Medial ankle ligaments: Again seen is thickening of the deep and superficial deltoid ligament without significant surrounding edema. There is also a tiny heterotopic ossicles along the deep deltoid ligament with scar/of findin gs most consistent with scarring related to chronic sprain. Minimal thickening of the superomedial co mponent of the spring ligament complex without surrounding edema also consistent with mild scarring r elated to chronic sprain Lateral ankle ligaments: The anterior and posterior inferior tibiofibular ligaments are normal. Thickening of the anterior magi ofibular ligament with tiny heterotopic ossicles near its fibular attachment consistent with sequela of chronic sprain. Similar thickening and mild increased signal of the posterior talofibular ligament most consistent with scarring related to chronic sprain. The calcaneofibular ligament remains normal . Tendons: Mild tendinosis of the distal Achilles tendon with small enthesophyte at its calcaneal attachment. Th e peroneus longus and brevis tendons are normal. The tibialis anterior and extensor hallucis longus a nd extensor digitorum longus tendons are normal. Small amount of fluid surrounding the normal appeari ng tibialis casino manager tendon consistent with mild tenosynovitis. The flexor digitorum longus and flexor hallucis longus tendons are normal. Plantar fascia: Again seen is mild thickening of the proximal plantar aponeurosis with moderate-sized plantar calcane al spur at its calcaneal attachment consistent with chronic enthesopathy. There is a small region of minimal fusiform thickening of the central component of the plantar aponeurosis centered approximatel y 4 cm from the calcaneal origin. The thickness increases from approximately 2 mm to 3 mm. This is no t well appreciated on the prior sagittal images likely due to slight differences in the plane of imag ing over appears similar on coronal images. Bones/other: Bone alignment is normal. No fracture or pathologic marrow replacing process. Increase in mild subtal ar osteoarthritis with partial thickness cartilage loss and new subarticular edema at the posterior m argin of the posterior facet. Again seen is prominent fluid signal and loss of T1 fat signal at the s inus Tarsi consistent with sinus Tarsi syndrome. There is increasing edema and likely developing mild cystic change at the dorsal aspect of the anterior process of the calcaneus and juxtaposed nonarticu lar surface of the lateral process of the talus. No interval change in intraosseous ganglion cyst at the angle of Gissane. Fluid: Synovitis and several small ganglion cysts at the posterior recess of the tibiotalar and subtalar j carlos nts. Small talonavicular joint effusion with mild bulging of the dorsal joint capsule. Unchanged smal l ganglion cyst dorsal to the navicular cuneiform articulation. IMPRESSION: 1. Scarring consistent with chronic medial and lateral ankle sprains. 2. Persistent prominent synovitis/inflammatory change at the sinus Tarsi suggestive of sinus Tarsi sy ndrome with progression of reactive marrow edema and likely developing mild cystic change at the juxt aposed surfaces of the dorsal aspect of the anterior process of the calcaneus and anterior margin of the lateral process of the talus which can be seen in the setting of lateral hindfoot impingement. 3. Persistent synovitis and ganglion cysts at the posterolateral aspect of the ankle which could pred ispose towards posterolateral impingement. 4. Enthesopat
== END ==
PROVIDERS: PCP Physician Assistant; Visit Provider Podiatrist Foot & Ankle Surgery
DX: M77.51 Other enthesopathy of right foot and ankle (principal); M72.2 Plantar fascial fibromatosis; L90.5 Scar conditions and fibrosis of skin; M65.871 Other synovitis and tenosynovitis, right ankle and foot; M67.471 Ganglion, right ankle and foot; M76.61 Achilles tendinitis, right leg
CPT/HCPCS: 73718

== ENCOUNTER → 2020-09-05 09:14 | Outpatient (CLI) | payer BC, SELFPAY ==
--- NOTE | ~2020-09-05 | MR_ITS ---
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 TECHNIQUE: Magnetic resonance imaging (MRI) of the right mid and hindfoot and ankle was performed wit hout intravenous contrast. Sequences included sagittal, coronal, and axial proton-density weighted fa st spin echo without and with fat saturation. COMPARISON: None. FINDINGS: Medial ankle ligaments: Stable appearance of mild thickening of the deep and superficial deltoid ligaments as well as the sup eromedial component of the spring ligament complex without significant surrounding edema consistent w ith scarring related to chronic sprain. Couple tiny heterotopic ossicles along the deep deltoid ligam ent consistent with chronic trauma. Lateral ankle ligaments: The anterior and posterior inferior tibiofibular ligaments are normal. Additional thickening of the a nterior talofibular and posterior talofibular ligaments with small amount of heterotopic ossification along the anterior talofibular ligament consistent with scarring related to chronic sprain. The calc aneofibular ligament remains normal. Tendons: Mild tendinosis of the distal Achilles tendon with small enthesophyte at its calcaneal attachment. Th e peroneus longus and brevis tendons are normal with small amount of surrounding fluid in the tendon sheath consistent with mild tenosynovitis. The tibialis anterior and extensor hallucis long us and ex tensor digitorum longus tendons are normal. Small amount of fluid surrounding the normal appearing ti bialis dough maker tendon consistent with mild tenosynovitis. The flexor digitorum longus and flexor hallu cis longus tendons are normal. There is mild mesial edema surrounding the distal flexor umbilicus iva caity muscle belly which could be related to muscle strain in the appropriate clinical setting. Plantar fascia: Again seen is mild thickening of the proximal plantar aponeurosis with moderate-sized plantar calcane al spur at its calcaneal attachment consistent with chronic enthesopathy. Unchanged small region of m inimal fusiform thickening of the central component of the plantar aponeurosis centered approximately 4 cm from the calcaneal origin consistent with plantar fibromatosis. Bones/other: Although imaging is nonweightbearing there is suggestion of possible pes planus. Alignment is otherwi se normal. No fracture or pathologic marrow replacing process. Mild subtalar osteoarthritis with no s ignificant change in mild partial thickness cartilage loss. Additional mild osteoarthritis at the sec ond tarsal metatarsal joint and at the articulation between the medial and mid cuneiforms with increa se in mild subarticular edema and cystic change at the middle cuneiform. Again seen is prominent flui d signal and loss of T1 fat signal at the sinus Tarsi and marrow edema along the nonarticular osseous margins of the sinus Tarsi consistent with sinus Tarsi syndrome. Slight interval increase in more pr ominent marrow edema and mild cystic change at the lateral process of the talus which can be seen wit h lateral hindfoot impingement. No interval change in intraosseous ganglion cysts at the angle of Gis sane. There is a bridging osteophyte at the dorsal lateral aspect of the calcaneocuboid articulation which could represent sequela of chronic sprain of the calcaneocuboid component of the bifurcate liga ment. Fluid: Synovitis and several small ganglion cysts at the posterior recess of the tibiotalar and subtalar j carlos nts. Small talonavicular joint effusion with mild bulging of the dorsal joint capsule. Unchanged smal l ganglion cyst dorsal to the navicular cuneiform articulation. IMPRESSION: 1. Unchanged scarring consistent with chronic medial and lateral ankle sprains. 2. No significant interval change in prominent synovitis and inflammatory change at the sinus Tarsi
== END ==
PROVIDERS: PCP Physician Assistant; Visit Provider Podiatrist Foot & Ankle Surgery
DX: G57.50 Tarsal tunnel syndrome, unspecified lower limb (principal); M25.571 Pain in right ankle and joints of right foot; M77.51 Other enthesopathy of right foot and ankle; M79.89 Other specified soft tissue disorders; M65.871 Other synovitis and tenosynovitis, right ankle and foot; M19.071 Primary osteoarthritis, right ankle and foot; M94.271 Chondromalacia, right ankle and joints of right foot
CPT/HCPCS: 73718

== ENCOUNTER 2022-03-03 09:42 | Outpatient (CLI) | payer MEDICARE, SELFPAY ==
--- NOTE | 2022-03-03 09:59 | ECG_ITS ---
Measurements Intervals [place] Rate: 77 P: 59 KS: 150 QRS: 11 QRSD: 104 T: 58 QT: 365 QTc: 415 Interpretive Statements SINUS RHYTHM WITH SINUS ARRHYTHMIA EARLY PRECORDIAL R/S TRANSITION BORDERLINE ECG COMPARED TO ECG 05/02/2019 16:03:45 SINUS ARRHYTHMIA NOW PRESENT Electronically Signed On 03-03-2022 10:57:54 TRAFFIC ENGINEERING DIRECTOR by Jerry Butterfield D.O.
== END 2022-03-03 09:43 | disposition home or self-care (01) ==
LOC: ANHCARD 09:51
PROVIDERS: PCP Physician Assistant; Visit Provider Anesthesiology
DX: I10 Essential (primary) hypertension (principal); I49.8 Other specified cardiac arrhythmias
CPT/HCPCS: 93005

== ENCOUNTER 2022-03-13 01:00 | Day surgery (SDC) | payer MEDICARE, SELFPAY ==
[2022-02-26 10:49] VITALS: BMI 43.2
--- NOTE | 2022-02-26 10:59 | PC.NURSE ---
Report to the Outpatient Waiting Room, entrance under the green pavilion located off [facility], at time 08:00AM on date 03/13/22. Planned Procedure Time: 10:00AM. Time changes happen often and if your time is changed the preop area will call you the afternoon before. - You and your visitor will be asked to self-screen and do not enter if you have any COVID symptoms. - Only one visitor is requested with a max of two and NO children visitors are allowed at this time. - The patient visitor may be requested to leave or wait in car when not with patient due to distancing restrictions. - A mask is optional within the hospital. Patients may have clear liquids (water, carbonated beverages, clear teas, apple juice) until 3 hours prior to surgery (07:00AM) with a maximum of 20 ounces. - No food from midnight until time of surgery Take the following medications with a SIP of water the morning of surgery: DULOXETINE, LORAZEPAM Medications to discontinue per physician: SUPPLEMENT, PER DR MAYEN Date to take last dose 03/09 Please no make-up, nail citizen of [place], hairspray, perfume, deodorant, or body powder the day of surgery. No jewelry (including any body piercings) or valuables the day of surgery, leave them at home. Please take a shower or bath the night before, or the morning of, surgery with an antibacterial soap. Wear comfortable, loose fitting clothing. - Jewelry must be removed prior to entering the operating room. Rings and piercings that are not removed may be cut off. - The hospital will not accept responsibility for valuables. - Please leave all valuables, including medications, at home the day of surgery. If you are going home after surgery, a licensed pick up truck driver must drive you home. - NO public transportation without another adult if you receive anesthesia. - We recommend that an adult stay with you for 24 hours following discharge. - We also recommend that you do not drive, make important decision, drink alcoholic beverages, or take any drugs that were not prescribed by your health care provider for at least 24 hours after your discharge time. Follow any additional instructions given to you from your surgeon. If you or anyone in your household have experienced Covid symptoms in the past week, please notify your surgeon or the nurse liaison at the phone number below for possible testing. Telephone instructions given to PATIENT and asked if any additional questions and then verbalized understanding. Patient advised to call surgeon office or pre surgery nurse liaison [phone] if any additional questions.
[2022-03-13] VITALS (11 sets, daily range): BP systolic 152–172; BP diastolic 90–102; PULSE 64–83; RESP 14–20; TEMP 36.5–37.3; O2SAT 94–100
--- NOTE | ~2022-03-13 | XR_ITS ---
XR surgery orthopedic DATE: 03/13/2022 12:12 INDICATION: Right foot arthrodesis TECHNIQUE: 40.4 seconds total fluoroscopy time 3.80 mGy total DAP Multiple spot C-arm exposures of the hindfoot COMPARISON: None FINDINGS: 3 lag screws extend through the posterior calcaneus into the talar dome IMPRESSION: Talocalcaneal arthrodesis Reviewed, dictated and finalized at Location A. Reviewed, dictated and finalized at location B. RHAND IMPRESSION: Talocalcaneal arthrodesis
--- NOTE | 2022-03-13 06:37 | WPDHPUPDATE1 ---
History and Physical Update Update Date/Time: 03/13/22 06:37 History and Physical has been reviewed, including an updated exam of the patient. There are NO changes in the patient's condition. Risks, benefits, and alternatives have been discussed and questions answered. Patient agrees to proceed with procedure.
[2022-03-13] MEDS: LACTATED RINGERS 1,000 ML 30 ML IV CONT ×3 (08:45→12:31)
[2022-03-13] MEDS: KETOROLAC 15 MG/ML VIAL (*BKC) IV PUSH (08:48)
[2022-03-13] MEDS: ACETAMINOPHEN 500 MG TABLET 1000 MG PO (08:48)
[2022-03-13 08:51] LABS: Glucose Point of Care 94 mg/dl (65-105)
--- NOTE | 2022-03-13 10:11 | WPDANESEPPF ---
Anes - Initial Pre Proc Eval Procedure: Operation Date: 03/13/22 10:00 Proposed Procedures p Right Subtalar Joint Arthrodesis - Gordy Chavarria MD Date/Time: 03/13/22 10:11 Surgeon: Gordy Chavarria MD Pre Op Diagnosis: right subtalar arthritis Patient Data Age: 56 Gender: M Height: 1.73 m Weight: 134 kg Last Vital Signs Temp 37.3 C 03/13/22 08:17 Pulse 64 03/13/22 08:17 Resp 18 03/13/22 08:17 BP 172/100 H 03/13/22 08:17 Pulse Ox 100 03/13/22 08:17 O2 Del Method Room Air 03/13/22 08:17 Allergies Allergy/AdvReac Type Severity Reaction Status Date / Time No Known Allergies Allergy Verified 02/26/22 10:50 Home Medications Medication Instructions Recorded Confirmed Type duloxetine 60 mg capsule,delayed 60 mg PO DAILY 05/02/19 02/26/22 History release sprinkle gabapentin 800 mg tablet 800 mg PO BID 05/02/19 02/26/22 History lisinopril 20 mg tablet 20 mg PO DAILY 05/02/19 02/26/22 History lorazepam 0.5 mg tablet 0.5 mg PO BID 05/02/19 02/26/22 History trazodone 100 mg tablet 100 mg PO HS 05/02/19 02/26/22 History rivaroxaban 10 mg tablet (Xarelto) 10 mg PO DAILY 02/12/22 02/26/22 History rosuvastatin 10 mg tablet 10 mg PO DAILY 02/12/22 02/26/22 History coenzyme Q10 100 mg capsule 100 mg PO DAILY 02/26/22 02/26/22 History (CoQ-10) Laboratory Tests 03/13/22 08:46 POC Capillary Glucose 94 mg/dl mg/dl (65-105) Patient hx anesthesia problems: none Family hx anesthesia problems: none Results Review: All pre-operative results and documents have been reviewed as part of the pre-operative evaluation. [facility] Past Medical History Medical History Acquired pes planovalgus of right foot Anxiety Arthritis Arthritis of ankle, right Arthritis of right subtalar joint Change in vision Depression Fibromyalgia Hearing loss HTN (hypertension) Obesity SHANTAL (obstructive sleep apnea) USES CPAP Pulmonary embolism 2014 BILAT PE Surgical History Surgical History H/O excision of mass Around 1999, reports a benign tumor was excised from his left arm, no further recurrences. H/O left knee surgery ORIF left knee from previous lateral plateau fracture, patient reports late . History of carpal tunnel release Family History Family History Mother Breast cancer Father Acute myocardial infarction multi-vessel CABG Other Cancer Diabetes mellitus Hypertension Social History Social History Social History: Mr. Del Rosario lives at home in [place] with his , Maureen. 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 He reports drinking around 6 beers per week; never smoker; denies other substance use. His PCP is Kaylie Lofton PA-C. He designates his , Maureen Del Rosario, as his surrogate decision maker and he is full code status. Smoking status: Never smoker Second hand tobacco smoke exposure: Yes ( A CHILD) Alcohol intake: current Drinks per week: 2 Substance use: never Substance use type: does not use Living arrangements: with family Spiritual care concerns: No Agree to blood products: Yes Anes - Eval Final PreProcedure Day of Procedure 03/13/22 10:11 Patient weight: morbidly obese Heart: regular rate and rhythm Lungs: clear to auscultation Airway: Mallampati scale class II Neurological: alert and oriented Last oral intake: >/= 8 hours ASA classification: III Emergent: no Anesthetic plan: proceed Anesthesia type and monitoring: general LMA and standard monitoring Results Review: All pre-operative results and documents have been reviewed as part of the pre-operative evaluation. Informed Consent: The patient's anesthetic plan and
[2022-03-13] MEDS: ceFAZolin 3 GM/D5W 100 ML 100 ML IVPB (10:34)
[2022-03-13] MEDS: BUPIVACAINE HCL 0.5% PF 30 ML VIAL INFILTRATE (11:14)
--- NOTE | 2022-03-13 12:41 | W.PM.PROC2 ---
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 Pain with daily activity and weight-bearing. Unrelieved with conservative measures. Presents for operative treatment. Description of Procedure Patient identified in the preoperative holding. Informed consent given. Operative extremity marked. Patient received intravenous antibiotics. Patient brought to the operating room where underwent general anesthetic by anesthesia team. Positioned supine on operating room table. Time-out performed confirming the patient, site of the surgery and the plan. right foot then prepped and draped usual sterile surgical fashion ChloraPrep skin solution. Foot ankle exsanguinated and a thigh tourniquet inflated to 250 mmHg. Oblique incision made from the distal fibula over the sinus tarsi with 15 blade knife. Hemostasis controlled electrocautery. Capsulotomy performed of the sinus tarsi. Abundant inflammatory fluid noted. Retractors placed. Joint was then prepared with osteotomes rongeur and curettes to denude the articular surface of the bottom of the talus and calcaneus. The joint was then thoroughly irrigated and suctioned. This was reduced and provisionally pinned image intensification confirmed alignment. Fixation achieved with 6.7 mm cannulated screw x2 placed percutaneously heel. Position verified with image intensification. Wound thoroughly irrigated with saline. Capsule closed 0 Vicryl interrupted suture. Subcutaneous tissue. 2-0 Vicryl 3-0 Monocryl interrupted suture and skin repaired with 4-0 Nylon running suture. Sterile dressing applied. The patient was then woken from anesthesia, extubated and taken to the recovery room in stable condition. All sponge, needle, instrument counts were correct at the end of the case. Implants Arthrex 6.7 mm cannulated screw x2 Estimated Blood Loss 10 Tourniquet Time 65 Drains No Packing No Pathology None sent Complications None Condition Stable Disposition PACU
[2022-03-13] MEDS: fentaNYL CITRATE INJ (*CRX) 100 MCG/2 ML VIAL 25 MCG IV PUSH ×8 (13:05→13:33)
[2022-03-13] MEDS: oxyCODONE HCL (*CRX) 5 MG TAB IR PO (14:15)
== END 2022-03-13 15:00 | disposition home or self-care (01) ==
PROVIDERS: PCP Physician Assistant; Visit Provider Orthopaedic Surgery
PROC: (CPT 28750; principal; 2022-03-13 10:00)
DX: M19.071 Primary osteoarthritis, right ankle and foot (principal); I10 Essential (primary) hypertension; G47.33 Obstructive sleep apnea (adult) (pediatric); M79.7 Fibromyalgia; F41.9 Anxiety disorder, unspecified; F32.A Depression, unspecified; Z86.711 Personal history of pulmonary embolism; E66.01 Morbid (severe) obesity due to excess calories; Z68.41 Body mass index [BMI] 40.0-44.9, adult; Z79.01 Long term (current) use of anticoagulants
CPT/HCPCS: 28725; 82948; 99199; A9270; C1769; J0690; J1100; J1885; J2250; J2405; J2704; J3010; J7120

== ENCOUNTER 2022-07-10 16:12 | Outpatient (CLI) | payer OTHER, MEDICARE, SELFPAY ==
--- NOTE | ~2022-07-10 | CT_ITS ---
EXAMINATION: CT ankle RT wo con DATE: 07/10/2022 17:07 INDICATION: Nonunion of a right subtalar arthrodesis TECHNIQUE: High resolution computed tomography (CT) of the right foot and ankle excluding the toes wa s performed without intravenous contrast. Additional sagittal and coronal reconstructions were perfor med. Automated exposure control and iterative reconstruction technique were employed. The dose-length product was 591.33 mGy-cm. COMPARISON: Radiograph dated 07/02/2022 FINDINGS: Right subtalar arthrodesis which is fixed with a pair of cannulated lag screws extending from the pos terior tuberosity of the calcaneus across the joint into the head of the talus. There appears to be d eveloping fusion the couple tiny splenic mild of solid bridging across the narrowed and irregular j carlos nt space. Alignment remains essentially anatomic. No fractures. Mild polyarticular osteoarthritis at the right ankle and majority the remaining joints in the right foot. Diffuse spotty osteopenia. Small Achilles and plantar calcaneal spurs. Additional small amount of heterotopic ossification at the dis magi Achilles tendon and along some of the intrinsic musculature at the plantar aspect of the hindfoot . Small ankle joint effusion. Subcutaneous edema about the ankle and extending over the dorsum of the foot. IMPRESSION: 1. Instrumented subtalar arthrodesis and developing fusion with a couple tiny spot welds of osseous b ridging across still largely unfused joint space. Reviewed, dictated and finalized at location A. IMPRESSION: 1. Instrumented subtalar arthrodesis and developing fusion with a couple tiny s pot welds of osseous bridging across still largely unfused joint space.
== END 2022-07-10 16:13 | disposition home or self-care (01) ==
PROVIDERS: PCP Physician Assistant; Visit Provider Orthopaedic Surgery
DX: M96.0 Pseudarthrosis after fusion or arthrodesis (principal)
CPT/HCPCS: 73700

== ENCOUNTER 2023-03-20 10:43 | Emergency (ER) | payer MEDICARE, SELFPAY ==
--- NOTE | ~2023-03-20 | XR_ITS ---
EXAMINATION: XR ankle RT min 3V DATE: 03/20/2023 13:14 INDICATION: Right ankle swelling. TECHNIQUE: 4 views of right ankle were obtained. COMPARISON: Right ankle radiographs 03/10/2023, 01/06/2023 FINDINGS: Bone alignment is normal. No fracture. There are changes of fusion procedure of subtalar bony int with 2 lag screws. There is mild midfoot osteoarthritis. There is osteoarthritis of the ankle j carlos nt including an osteochondral lesion of medial talar dome. There are enthesophytes at the posterior a nd plantar aspects of calcaneal tuberosity. Ankle soft tissue swelling is noted. IMPRESSION: 1. Polyarticular osteoarthritis. 2. Subtalar joint fusion procedure. Reviewed, dictated and finalized at location A. 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
[2023-03-20 11:12] VITALS: BP 118/44; PULSE 76; RESP 18; TEMP 36.9; O2SAT 98
[2023-03-20 13:00] LABS: Basophils Absolute Auto 0.1 K/mm3 (0.0-0.1); Basophils Percent Auto 0.6 % (0.2-1.2); Eosinophils Absolute Auto 0.2 K/mm3 (0-0.3); Eosinophils Percent Auto 1.8 % (0-4.4); Hematocrit 41.6 % (42.0-52.0); Hemoglobin 13.6 g/dL (14.0-18.0); Immature Granulocyte Absolute 0.02 K/mm3 (0.00-0.031); Immature Granulocyte Percent A 0.2 % (0-0.5); Lymphocytes Absolute Auto 1.18 K/mm3 (0.9-3.2); Lymphocytes Percent Auto 14.5 % (18.3-44.2); Mean Corpuscular HGB Conc 32.7 g/dl (32-36); Mean Corpuscular Hemoglobin 29.2 pg (26-34); Mean Corpuscular Volume 89.5 fl (80-100); Mean Platelet Volume 9.8 fl (7.4-10.4); Monocytes Percent Auto 11.8 % (2.6-8.5); Neutrophils Absolute Auto 5.8 K/mm3 (1.3-6.7); Neutrophils Percent Auto 71.1 % (45.5-73.1); Platelet Count Result 252 k/mm3 (150-375); Red Blood Count 4.65 M/mm3 (4.6-6.20); Red Cell Distribution Width 13.4 % (11.5-14.5); White Blood Count 8.2 K/mm3 (4.5-10.0)
[2023-03-20 13:13] LABS: Alanine Aminotransferase 46 U/L (6-50); Albumin Level 4.5 g/dL (3.5-5.1); Alkaline Phosphatase 78 U/L (38-126); Anion Gap 6 mmol/L (8-16); Aspartate Amino Transferase 32 U/L (17-59); Bilirubin,Total 0.7 mg/dL (0.2-1.3); Blood Urea Nitrogen 25 mg/dL (9-20); Calcium 9.8 mg/dL (8.4-10.2); Carbon Dioxide 32 mmol/L (22-30); Chloride 100 mmol/L (98-107); Estimated CRCL calculation 56 ml/min; Estimated Glomerular Filt Rate 39; Glucose 103 mg/dL (65-110); Potassium 4.2 mmol/L (3.4-5.0); Sodium 138 mmol/L (137-145)
--- NOTE | 2023-03-20 13:14 | ED.EXTPRO ---
HPI - Extremity Problem General Chief complaint: Extremity Problem,Nontraumatic Stated complaint: R foot can't bear weight Time Seen by Provider: 03/20/23 12:09 Source: patient, RN notes reviewed and old records reviewed Mode of arrival: ambulatory Limitations: no limitations History of Present Illness HPI Narrative: This is a 57 year old male with history of right ankle subtalar arthodesis, arthritis and chronic right ankle foot pain who presents for right medial ankle and foot pain. Patient states yesterday he noticed when he woke up pain to right medial ankle and foot. He also reports pain along his Achilles. He states he is unable to bear weight due to pain. He also reports worsening swelling to his medial ankle than normal. He denies fever, chills. He reports having right ankle injection to right ankle by Dr. Chavarria 1 week ago. He has [place] for pain at home Related Data Home Medications Medication Instructions Recorded Confirmed duloxetine 60 mg capsule,delayed 60 mg PO DAILY 05/02/19 03/10/23 release sprinkle gabapentin 800 mg tablet 800 mg PO BID 05/02/19 03/10/23 lisinopril 20 mg tablet 20 mg PO DAILY 05/02/19 03/10/23 lorazepam 0.5 mg tablet 0.5 mg PO BID 05/02/19 03/10/23 trazodone 100 mg tablet 100 mg PO HS 05/02/19 03/10/23 rivaroxaban 10 mg tablet (Xarelto) 10 mg PO DAILY 02/12/22 03/10/23 rosuvastatin 10 mg tablet 10 mg PO DAILY 02/12/22 03/10/23 coenzyme Q10 100 mg capsule 100 mg PO DAILY 02/26/22 03/10/23 (CoQ-10) Allergies Allergy/AdvReac Type Severity Reaction Status Date / Time No Known Allergies Allergy Verified 03/20/23 10:43 Review of Systems Constitutional: Constitutional: Denies chills, Denies fatigue and Denies fever(s) Cardiovascular: Cardiovascular: Denies chest pain Respiratory: Respiratory: Denies dyspnea Musculoskeletal: Musculoskeletal: Reports arthralgias (chronic) and Reports joint swelling (chronic) [facility] Past Medical History Medical History Acquired pes planovalgus of right foot Anxiety Arthritis Arthritis of ankle, right Arthritis of right subtalar joint Change in vision Depression Fibromyalgia Hearing loss HTN (hypertension) Nonunion of subtalar arthrodesis Obesity SHANTAL (obstructive sleep apnea) USES CPAP Pulmonary embolism 2015 BILAT PE Surgical History Surgical History H/O excision of mass Around 1999, reports a benign tumor was excised from his left arm, no further recurrences. H/O left knee surgery ORIF left knee from previous lateral plateau fracture, patient reports late . History of carpal tunnel release Family History Family History Mother Breast cancer Father Acute myocardial infarction multi-vessel CABG Other Cancer Diabetes mellitus Hypertension Social History Social History Social History: Mr. Del Rosario lives at home in [place] with his , Maureen. 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 He reports drinking around 6 beers per week; never smoker; denies other substance use. His PCP is Kaylie Lofton PA-C. He designates his , Maureen Del Rosario, as his surrogate decision maker and he is full code status. Smoking status: Never smoker Second hand tobacco smoke exposure: Yes ( A CHILD) Alcohol intake: current Drinks per week: 2 Substance use: never Substance use type: does not use Living arrangements: with family Occupation/Education: retired Spiritual care concerns: No Agree to blood products: Yes Exam Const: General: no acute distress and alert Nutritional Appearance: well nourished Resp: Effort & Inspection: normal respiratory effort Cardio: Rate: regular rate Rhythm: regular rhythm Neuro: General:
[2023-03-20 13:15] LABS: CRP 5.4 mg/dL (<1.0); Uric Acid 7.5 mg/dL (3.5-8.5)
[2023-03-20 14:04] LABS: INR 1.2; Prothrombin Time 15.6 Seconds (11.1-14.7)
[2023-03-20 14:05] LABS: Partial Thromboplastin Time 36.4 SECONDS (22.3-36.8)
== END 2023-03-20 14:38 | disposition home or self-care (01) ==
PROVIDERS: Emergency Provider General Practice; PCP Orthopaedic Surgery
DX: M19.071 Primary osteoarthritis, right ankle and foot (principal); I10 Essential (primary) hypertension
CPT/HCPCS: 36415; 73610; 80053; 84550; 85025; 85610; 85730; 86140; 99283